=== PATIENT | female | born 1950 | race Caucasian/White ===

== ENCOUNTER → 2017-03-26 | Outpatient (CLI) | payer OTHER | LOC: CLAB 14:07 | PROVIDERS: ATTEND Physical Medicine & Rehabilitation | DX: M54.5 Low back pain (principal); M54.6 Pain in thoracic spine; M54.2 Cervicalgia; M53.3 Sacrococcygeal disorders, not elsewhere classified; W19.XXXA Unspecified fall, initial encounter; M50.223 Other cervical disc displacement at C6-C7 level; M51.36 Other intervertebral disc degeneration, lumbar region | CPT/HCPCS: 72040-PO; 72070-PO; 72100-PO; 72220-PO ==

== ENCOUNTER 2017-06-12 06:54 | Observation (INO) | payer OTHER ==
--- NOTE | 2017-06-12 06:57 | EDPHY ---
H & P Time Seen by Provider: 06/12/17 06:56 HPI/ROS: CHIEF COMPLAINT: Rapid heart rate HISTORY OF PRESENT ILLNESS: Patient is a history of atrial fibrillation but has never had to be cardioverted. She had adverse reaction diltiazem in the past and when she goes atrial fibrillation takes metoprolol at 12.5 mg dose which usually resolves her symptoms. Last night around 6:00 p.m. she went into atrial fibrillation and still feels like she is in it. Not currently anticoagulated. Not associated with chest pain or shortness of breath or lightheadedness or syncope. Her 2nd reason for presentation tonight is at 2:00 a.m. she got out of bed and tripped over a pillow and fell hitting left side of her chest and upper abdomen on the marble table top at home. She presents with pain in her left lower chest and upper abdomen worse with movement and respiration. Symptoms moderate with movement or palpation. REVIEW OF SYSTEMS: Eye: no change in vision ENT: no sore throat Cardiac: HPI Pulmonary: no cough or SOB Abdomen: no vomiting, diarrhea, abdominal pain Musculoskeletal: no back pain or neck pain Skin: no rash Neuro: no headache Constitutional: no fever : no urinary symptoms A comprehensive 10 point review of systems is otherwise negative aside from elements mentioned in the history of present illness. PAST MEDICAL HISTORY: Previous history and physical dated 12/21/2013 personally reviewed by myself at 6:55 a.m. includes fibromyalgia, anxiety, atrial fibrillation, irritable bowel. TMJ, and . Social history: Nonsmoker, family history of AFib, occasional alcohol. General Appearance: Alert and conversant, cooperative. Eyes: No scleral icterus. ENT, Mouth: Normal mucous membranes. Respiratory: Normal respiratory effort, breath sounds equal, lungs are clear to auscultation. Cardiovascular: Irregularly irregular and tachycardic. Gastrointestinal: Patient has tenderness over the spleen on the left side and over the 10th 11th and 12th ribs laterally. Neurological: Alert and oriented x3. Normally conversant. Face symmetric, normal movement and sensation in all extremities. Skin: Warm and dry, no rashes. Musculoskeletal: No peripheral edema and no joint swelling. Psychiatric: Not agitated. Emergency Department course/MDM: EKG, IV metoprolol at 5 mg increments. Check electrolytes. Plan for chest x- ray and CT abdomen pelvis discussed and consented to evaluate for splenic injury. 945: Discussed with Blanco, get echo, admit hospitalist, NPO. Results including slightly elevated troponin discussed with the patient. 1000: Additional IV metoprolol 5 mg for heart rate in the 120s, echo ordered, admission discussed and consented. Normal saline 1 L IV for IV contrast. I think she has a chest wall contusion, negative trauma workup for intra- abdominal or intrathoracic injury. Smoking Status: Never smoked Constitutional: Initial Vital Signs Temperature (C) 36.5 C 06/12/17 06:57 Heart Rate 127 H 06/12/17 06:57 Respiratory Rate 18 06/12/17 06:57 Blood Pressure 113/75 06/12/17 06:57 O2 Sat (%) 96 06/12/17 06:57 O2 Delivery Mode Room Air Allergies/Adverse Reactions: diltiazem Allergy (Severe, Verified 06/12/17 07:00) Other-Enter Comments diltiazem HCl [From Cardizem] Allergy (Severe, Verified 06/12/17 07:00) Other-Enter Comments aloe vera Allergy (Mild, Verified 06/12/17 07:00) Rash Penicillins Allergy (Mild, Verified 06/12/17 07:00) Rash Sulfa (Sulfonamide Antibiotics) Allergy (Mild, Verified 06/12/17 07:00) Rash Home Medications: Medication Instructions Recorded ALPRAZolam [Xanax 1 MG (*)] 1 mg PO HS 06/12/17 Metoprolol Tartrate [Lopressor 25 12.5 mg PO 06/12/17 mg (*)] Oxycodone HCl MO 06/12/17 Medical Decision Making - Diagnostics EKG Interpretation: 12-lead EKG interpreted by me; official reading is in trace master. My interpretation is atrial fibrillation rate 139 no acute ischemic changes, nonspecific T-wave flattening. Imaging Results: Imaging Impressions Chest X-Ray 06/12/17 07:26 Impression: Chest negative for acute posttraumatic sequela. Abdomen CT 06/12/17 07:57 Impression: 1. Minimal subcutaneous edema along the left flank. 2. No fracture or bowel or solid organ injury. 3. Benign angiomyolipoma in left lobe of liver is unchanged in size since June 2015. Findings discussed with Emergency Department physician, Paulo Curran on June at 9:[address] abdomen and pelvis for trauma, normal spleen per Helgans at 9:18 a.m. Differential Diagnosis: Differential diagnosis considered for narrow complex tachycardia including but not limited to various causes of sinus tachycardia, SVT, atrial flutter and atrial fibrillation. Differential for left upper quadrant trauma considered including but not limited to hemothorax, pneumothorax, splenic injury, rib fracture or contusion. Consult/Admit Bed Type: [place] [id number] Critical Care Time: Critical care time spent by me, Dr. Curran, exclusively with the care of this patient was 35 minutes, exclusive of PA or MANAGER STONE time and exclusive of separate procedures. The organ system at risk was cardiovascular and I ordered echocardiogram, multiple diagnostic studies, cardiology consultation, IV metoprolol, and admission to stabilize the patient and prevent worsening of the patient's condition. - Data Points Laboratory Results: Laboratory Results 06/12/17 07:37 06/12/17 07:37 06/12/17 06/12/17 06/12/17 07:41 07:37 07:37 WBC RBC Hgb POC Hgb 15.3 gm/dL gm/dL (12.6-16.3) Hct POC Hct 45 % % (38-47) MCV MCH MCHC RDW Plt Count MPV Neut % (Auto) Lymph % (Auto) [place] % (Auto) Eos % (Auto) Baso % (Auto) Nucleat RBC Rel Count Absolute Neuts (auto) Absolute Lymphs (auto) Absolute Monos (auto) Absolute Eos (auto) Absolute Basos (auto) Absolute Nucleated RBC Immature Gran % Immature Gran # POC Sodium 140 mEq/L mEq/L (134-144) Sodium 138 mEq/L mEq/L (134-144) POC Potassium 4.3 mEq/L mEq/L (3.3-5.0) Potassium 4.6 mEq/L mEq/L (3.5-5.2) POC Chloride 104 mEq/L mEq/L (97-110) Chloride 106 mEq/L mEq/L (97-110) Carbon Dioxide 21 mEq/l L mEq/l (22-31) Anion Gap 11 mEq/L mEq/L (8-16) POC BUN 21 mg/dL mg/dL (7-23) BUN 20 mg/dL mg/dL (7-23) Creatinine 0.8 mg/dL mg/dL (0.6-1.0) POC Creatinine 0.8 mg/dL mg/dL (0.6-1.0) Estimated GFR > 60 Glucose 105 mg/dL H mg/dL (70-100) POC Glucose 109 mg/dL H mg/dL (70-100) Calcium 9.6 mg/dL mg/dL (8.5-10.4) Troponin I 0.090 ng/mL H ng/mL (0-0.034) 06/12/17 07:37 WBC 10.45 10^3/uL H 10^3/uL (3.80-9.50) RBC 4.59 10^6/uL 10^6/uL (4.18-5.33) Hgb 14.1 g/dL g/dL (12.6-16.3) POC Hgb Hct 41.7 % % (38.0-47.0) POC Hct MCV 90.8 fL fL (81.5-99.8) MCH 30.7 pg pg (27.9-34.1) MCHC 33.8 g/dL g/dL (32.4-36.7) RDW 12.5 % % (11.5-15.2) Plt Count 319 10^3/uL 10^3/uL (150-400) MPV 8.8 fL fL (8.7-11.7) Neut % (Auto) 66.8 % % (39.3-74.2) Lymph % (Auto) 26.2 % % (15.0-45.0) [place] % (Auto) 5.3 % % (4.5-13.0) Eos % (Auto) 0.7 % % (0.6-7.6) Baso % (Auto) 0.5 % % (0.3-1.7) Nucleat RBC Rel Count 0.0 % % (0.0-0.2) Absolute Neuts (auto) 6.99 10^3/uL H 10^3/uL (1.70-6.50) Absolute Lymphs (auto) 2.74 10^3/uL 10^3/uL (1.00-3.00) Absolute Monos (auto) 0.55 10^3/uL 10^3/uL (0.30-0.80) Absolute Eos (auto) 0.07 10^3/uL 10^3/uL (0.03-0.40) Absolute Basos (auto) 0.05 10^3/uL 10^3/uL (0.02-0.10) Absolute Nucleated RBC 0.00 10^3/uL 10^3/uL (0-0.01) Immature Gran % 0.5 % % (0.0-1.1) Immature Gran # 0.05 10^3/uL 10^3/uL (0.00-0.10) POC Sodium Sodium POC Potassium Potassium POC Chloride Chloride Carbon Dioxide Anion Gap POC BUN BUN Creatinine POC Creatinine Estimated GFR Glucose POC Glucose Calcium Troponin I Medications Given: Discontinued Medications Metoprolol Tartrate (Lopressor Injection) 5 mg IVP Q5M CORBY Stop: 06/12/17 07:41 Last Admin: 06/12/17 08:07 Dose: 5 mg Morphine Sulfate (Morphine) 2 mg IVP EDNOW ONE Stop: 06/12/17 07:27 Last Admin: 06/12/17 07:38 Dose: 2 mg Morphine Sulfate (Morphine) 4 mg IVP EDNOW ONE Stop: 06/12/17 07:59 Last Admin: 06/12/17 08:09 Dose: 4 mg Morphine Sulfate (Morphine) 4 mg IVP EDNOW ONE Stop: 06/12/17 09:05 Last Admin: 06/12/17 09:09 Dose: 4 mg Point of Care Test Results: 06/12/17 07:41 POC Sodium 140 POC Potassium 4.3 POC Chloride 104 POC BUN 21 POC Creatinine 0.8 POC Glucose 109 H Departure - Departure Disposition: [facility] Inpatient Acute Clinical Impression: Afib Qualifiers: Atrial fibrillation type: paroxysmal Qualified Code(s): I48.0 - Paroxysmal atrial fibrillation Contusion of left chest wall Qualifiers: Encounter type: initial encounter Qualified Code(s): S20.212A - Contusion of left front wall of thorax, initial encounter Condition: Good Instructions: A-fib (Atrial Fibrillation) (ED), Blunt Chest Trauma (ED) Referrals: Elena Weaver MD [Primary Care Provider] - As per Instructions
[2017-06-12] MEDS: METOPROLOL TARTRATE 5 MG/5 ML INJ IVP SCH ×6 (07:43→11:12)
--- NOTE | 2017-06-12 07:44 | CPEKG ---
Heart Rate: 139 RR Interval: 432 QRSD Interval: 72 QT Interval: 304 QTC Interval: 463 QRS [place]: 47 T Wave [place]: 20 EKG Severity - ABNORMAL ECG - EKG Impression: ATRIAL FIBRILLATION EKG Impression: BORDERLINE T WAVE ABNORMALITIES Electronically Signed By: Paulo Curran 12-Jun-2017 07:44:38
[2017-06-12 07:47] LABS: % IMMATURE GRANULYOCYTES 0.5 % (0.0-1.1); ABSOLUTE IMMATURE GRANULOCYTES 0.05 10^3/uL (0.00-0.10); ADD DIFF? NO; ADD MORPH? NO; ADD SCAN? NO; ATYPICAL LYMPHOCYTE FLAG 0 (0-99); FRAGMENT RBC FLAG 0 (0-99); HEMATOCRIT 41.7 % (38.0-47.0); HEMOGLOBIN 14.1 g/dL (12.6-16.3); LEFT SHIFT FLG 0 (0-99); LIPEMIA HEMOLYSIS FLAG 90 (0-99); MEAN CELL HEMOGLOBIN 30.7 pg (27.9-34.1); MEAN CELL HEMOGLOBIN CONCENTR. 33.8 g/dL (32.4-36.7); MEAN CELL VOLUME 90.8 fL (81.5-99.8); MEAN PLATELET VOLUME 8.8 fL (8.7-11.7); PLATELET CLUMPS FLAG 0 (0-99); PLATELET COUNT 319 10^3/uL (150-400); RED BLOOD CELL COUNT 4.59 10^6/uL (4.18-5.33); RED CELL DISTRIBUTION WIDTH 12.5 % (11.5-15.2)
[2017-06-12 08:05] LABS: ANION GAP 11 mEq/L (8-16); CALCIUM 9.6 mg/dL (8.5-10.4); CARBON DIOXIDE 21 mEq/l (22-31); CHLORIDE 106 mEq/L (97-110); CREATININE 0.8 mg/dL (0.6-1.0); GLOMERULAR FILTRATION RATE > 60; GLUCOSE 105 mg/dL (70-100); POTASSIUM 4.6 mEq/L (3.5-5.2); SODIUM 138 mEq/L (134-144)
[2017-06-12] MEDS ORDERED: IOPAMIDOL (ISOVUE-300) 100 ML BTL ONE (08:29)
[2017-06-12] MEDS ORDERED: HYDROmorphONE/DILAUDID 1 MG/ML SYR IVP ONE (10:00)
[2017-06-12] MEDS ORDERED: NS 1,000 ML IV ONE (10:01)
[2017-06-12] MEDS ORDERED: ONDANSETRON 4 MG/2 ML VIAL ONE (10:38)
[2017-06-12] MEDS ORDERED: ONDANSETRON 4 MG/2 ML VIAL IVP ONE (10:40)
[2017-06-12] MEDS: NS 1,000 ML IV SCH ×2 (14:15→22:20)
[2017-06-12] MEDS ORDERED: METOPROLOL TARTRATE 25 MG TAB PO PRN (14:42)
[2017-06-12] MEDS ORDERED: ASPIRIN 600 MG PR PRN (14:42)
[2017-06-12] MEDS ORDERED: ONDANSETRON 4 MG/2 ML VIAL IVP PRN (15:13)
[2017-06-12] MEDS ORDERED: ACETAMINOPHEN 325 MG TAB PO PRN (15:13)
[2017-06-12] MEDS ORDERED: ONDANSETRON DISINTEGRATING 4 MG TAB PO PRN (15:13)
--- NOTE | 2017-06-12 15:59 | GHP ---
[f rep st] HISTORY AND PHYSICAL DATE OF ADMISSION: 06/12/2017 HISTORY OF PRESENT ILLNESS: The patient is a pleasant 67-year-old female with a history of paroxysm al atrial fibrillation and multiple drug intolerances who presents with atrial fibrillation that sta rted last night. She took 12.5 mg metoprolol p.r.n. about 3 or 4 times. It did not mag. She see [facility] care here. She has not had chest pain, chest pressure. She has an elevated troponin that has no t been part of her symptomatology in the past. She is not on anticoagulation. Her [id number] is 2. She denies history of exertional tolerance. The patient had a mechanical fall last night, landing on her right side. This is causing her pain. REVIEW OF SYSTEMS: Complete 10-point review of systems conducted. Negative except as noted in the HPI. PAST MEDICAL HISTORY: 1. Paroxysmal atrial fibrillation. 2. Hysterectomy. 3. Fibromyalgia. 4. Possible Sjogren syndrome. 5. History of . ALLERGIES: Diltiazem, aloe vera, penicillin, and sulfa. HOME MEDICATIONS: Oxycodone suppository, ascorbic acid, metoprolol, p.r.n. rectal aspirin, Xanax. SOCIAL HISTORY: No tobacco. Lives with her . FAMILY HISTORY: Reviewed and unremarkable. PHYSICAL EXAMINATION: VITAL SIGNS: Temp 36.3, blood pressure 106/72, pulse 88, it was 148 on arriv al, beating 12 times a minute, 98% on 2 L. GENERAL: No acute distress. Conversant. Sclerae anict mickey. Oropharynx clear. Mucous membranes moist. NECK: Supple. No lymphadenopathy or JVD. LUNGS : Clear to auscultation bilaterally. HEART: S1, S2. Irregularly irregular. No murmur. ABDOMEN: Soft, nontender, nondistended. LOWER EXTREMITIES: Without edema. Calves are nontender. SKIN: Without rash. NEUROLOGIC: Exam is nonfocal. LABORATORY DATA: White count 10.5, hematocrit 41, platelets 319,000. Sodium 140, potassium 4.3, ch loride 104, bicarb 21, BUN 11, creatinine 0.8. Troponin 0.09. Abdominal CT shows soft tissue swell ing in the left flank, but no internal injury. EKG interpreted by me shows atrial fibrillation at r apid at 139 with normal axis and intervals. The flat T's inferiorly but no ST or T-wave changes. C hest x-ray shows no acute cardiopulmonary disease. I discussed the case with Dr. Codey Simeon. ASSESSMENT/PLAN: A 67-year-old female, with paroxysmal atrial fibrillation here with same. 1. Atrial fibrillation. The patient is potentially scheduled for HILARY cardioversion in the morning. She has aversion to many medications so may not tolerate anticoagulation. She is possibly willing to do low-molecular weight heparin. This should be verified before she is cardioverted. 2. Elevated troponin concerning for demand ischemia. Angiogram is possibly scheduled in the [facility]. Again I am not clear the patient would tolerate dual antiplatelet therapy so this could potentia lly be a very high-risk situation. She is not in heart failure right now. 3. Pain. I will continue her pain medicines from home. 4. Anxiety. Continue her p.r.n. Xanax. DISPOSITION: Observation status. /[id number]/MODL
--- NOTE | 2017-06-12 18:20 | GCON ---
[f rep st] CONSULTATION CARDIOLOGY CONSULTATION. DATE OF CONSULTATION: 06/12/2017 REFERRING PHYSICIAN: Nataliya Baltazar MD INDICATION FOR CONSULTATION: Mild troponin elevation, episode of paroxysmal atrial fibrillation. HISTORY OF PRESENT ILLNESS: The patient is a pleasant 67-year-old female with a past medical history of paroxysmal atrial fibrillation initially diagnosed approximately 4 years ago and is well cared for by Dr. Garner and Dr. Nuñez at [facility]. She uses p.r.n. metoprolol for her episodes of atrial fibrillation. She states she typically gets episodes of atrial fibrillation that occur approximately twice a year. She does have a CHADS-VASc score of 3 based on age, gender, and history of hypertension, although she disputes the fact that she has a history of hypertension. She is not on anticoagulation therapy. I have discussed in detail with her the risks versus benefits of anticoagulation. She refuses anticoagulation, states she would be intolerant to medications. She has never been on anticoagulation. She is unable to take aspirin secondary to GI upset, as well. The patient was in her usual state of health until last evening when she had a very large dinner and got up from the table and went into atrial fibrillation with rapid ventricular response. She treated herself with p.r.n. metoprolol, and atrial fibrillation persisted throughout the evening. She got up in the middle of the night to go the bathroom and tripped over a pillow and fell onto a hard marble table on her left flank causing intense left flank pain, prompting her evaluation at [facility] for further evaluation. She did undergo a chest x-ray in the emergency department, and it demonstrated negative chest for acute trauma or posttraumatic sequelae. Lungs are clear. Mediastinal contours are normal. There is no evidence of a pneumothorax. She did have a troponin drawn, which was mildly elevated at 0.090. She denies complaints of chest pain, chest pressure, palpitations, dizziness, lightheadedness, near syncope, or syncope. She denies complaints of PND, orthopnea, or lower extremity edema. She does have left-sided flank pain at the site of her traumatic injury from earlier this morning. The patient has no known history of coronary artery disease. She states that when she was initially diagnosed with atrial fibrillation she underwent extensive evaluation and denies any history of coronary artery disease. She has not undergone any risk stratification in the last 4 years. Currently, at the time of my exam, she is resting comfortably. She is vomiting intermittently, which she feels is related to the fact that she received Dilaudid. PAST MEDICAL HISTORY: Notable for an angiomyolipoma, anxiety, atrial fibrillation, fibromyalgia, functional dyspepsia, GERD, heartburn, hemorrhoids, hyperlipidemia, hypertension, irritable bowel syndrome, lumbar radiculopathy, multiple chemical sensitivity syndrome, osteopenia, borderline diabetes, tinnitus, urinary urgency. 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 MEDICATIONS ON ADMISSION: Include oxycodone suppositories b.i.d., herbal supplements, vitamin C, metoprolol 12.5 mg p.o. p.r.n. atrial fibrillation, rectal suppository of aspirin 600 mg b.i.d. p.r.n. and she uses this p.r.n. when she has atrial fibrillation, Xanax 1.5 to 2 mg p.o. h.s. and 1 mg p.o. b.i.d. ALLERGIES: To medications include diltiazem, which resulted in a long 10- second pause, aloe, penicillins, and sulfa. SOCIAL HISTORY: She lives with her . She is a nonsmoker. REVIEW OF SYSTEMS: Positive for left flank pain, nausea, vomiting, abdominal pain, and chronic lower back pain. The remainder of review of systems was negative. PHYSICAL EXAMINATION: VITAL SIGNS: Blood pressure is 106/72, heart rate of 88 , respiratory rate of 12, oxygen saturation 98% on 2 L nasal cannula, temperature 36.3. GENERAL: She is awake, alert, oriented, appropriate, in no apparent distress, but does vomit intermittently. LUNGS: Clear to auscultation anteriorly. She is unable to lean up secondary to her chronic back pain. CARDIAC: S1, S2. Irregularly, irregular. No murmurs, rubs, or gallops. There is no evidence of JVP or carotid bruits. ABDOMEN: Soft, nontender, nondistended. There is no evidence of cyanosis, clubbing, or edema. LABORATORY DATA: White blood cell count 10.45, hemoglobin 14.1, hematocrit 41.7 , platelets 319. Sodium of 138, potassium 4.6, chloride 106, bicarb 21, BUN 20 , creatinine 0.8, glucose 105. Troponin 0.090. DIAGNOSTIC DATA: CT of the abdomen demonstrates minimal subcutaneous edema along the left flank. No fracture or bowel or solid organ injury. There is benign angiomyolipoma in the left lobe of the liver unchanged since previous study in 2015. Chest x-ray: No pneumothorax. EKG: Demonstrates atrial fibrillation with rapid ventricular response at 139 beats per minute. Telemetry at the time of my exam demonstrates atrial fibrillation at 119 beats per minute. IMPRESSION: 1. Atrial fibrillation with rapid ventricular response. 2. Mildly elevated troponin. 3. Nausea and vomiting thought to be secondary to Dilaudid. 4. Left flank plain secondary to a traumatic fall. Chest x-ray and CT of the abdomen are unremarkable for any trauma. The patient is a pleasant 67-year-old female with known history of paroxysmal atrial fibrillation. She has a mildly elevated troponin at this time and generally asymptomatic. She has had no further cardiac risk stratification since her initial diagnosis approximately 4 years ago. I have recommended HILARY- guided cardioversion. She has refused. She refuses anticoagulation. Would recommend that she remain in the hospital to trend her serial troponins. Would recommend she remain n.p.o. after midnight in anticipation for reconsideration of HILARY-guided cardioversion and possibly the need for diagnostic left heart catheterization versus further cardiac risk stratification with nuclear stress test in the morning pending the results of serial cardiac enzymes. PLAN: 1. Serial cardiac troponins have been ordered. 2. N.p.o. after midnight for consideration of possible diagnostic left heart catheterization. 3. Consider HILARY cardioversion in the morning pending on patient's atrial fibrillation status. 4. Will discuss anxiety medicine and pain medicine management with Dr. Ishan Peraza of the hospitalist service and will provide some gentle IV hydration at this time. 5. Pt with multiple medications sensitivities and I do have concern that she would be intolerant to dual anti platelet therapy and to anticoagulation. Will require further detailed discussion with pt regarding risks and benefits of any future cardiac procedures. 45 minutes spent coordinating patient care. /[id number]/MODL MTDD
--- NOTE | 2017-06-12 18:56 | ECHO ---
[id number] + + [address] : : [place] [address] : : [phone] + + Adult Echocardiographic Report + ------+ :Name: FRED BARON PStudy Date: 06/12/2017 11:12 AM : : Hospital Admission Number: [id number] Locatio n: ER6: :: 1950 Gender: Female Height: 69 in : :Age: 67 yrs Race: WH Weight: 160 lb : :Reason For Study: Eval LV Fx : : BSA: 1.9 meters 2 : :History: Chest Pain, New onset A-fib : + ------+ MMode/2D Measurements \T\ Calculations IVSd: 1.1 cm LVIDd: 3.7 cm FS: 26.4 % Ao root diam: 3.5 cm LVPWd: 1.3 cm LVIDs: 2.7 cm EDV(Teich): 57.0 ml ACS: 1.8 cm ESV(Teich): 27.0 ml EF(Teich): 52.6 % Normal Measurement Values: + + :LVIDd (3.5-5.7cm) IVSd (0.6-1.1cm) LVPWd (0.6-1.1cm) Aortic Root (2.0-3.7cm)Left Atrium (1.5-4.0cm): :LV Vol(d) (76-115ml) LV Vol(s) (29-48ml) Ejec Fraction (50-65%)PV Pierre (0.6- 1.2m/s) TV Pierre (0.4-1.0m/s) : :MV E Pierre (0.8-1.0m/s)MV A Pierre (0.3-1.0m/s)LVOT Pierre (0.7-1.2m/s) Asc Ao Pierre ( 0.9-1.8m/s) : + + Doppler Measurements \T\ Calculations MV E max pierre: Ao V2 max: AI max pierre: LV V1 max: 81.9 cm/sec 99.1 cm/sec 267.0 cm/sec 95.3 cm/sec Ao max PG: AI max P.5 mmHg LV V1 max P.9 mmHg AI dec slope: 3.6 mmHg 118.0 cm/sec2 AI P1/2t: 662.7 msec PA V2 max: PI end-d pierre: TR max pierre: 59.7 cm/sec 80.1 cm/sec 252.0 cm/sec PA max P.4 mmHg TR max P.4 mmHg RAP systole: 5.0 mmHg RVSP(TR): 30.4 mmHg Left Ventricle The left ventricle is normal in size. There is mild concentric left ventricular hypertrophy. Ejection Fraction = 60%. Right Ventricle The right ventricle is normal in size and function. Atria The left atrial size is normal. Right atrial size is normal. Mitral Valve The mitral valve is redundant but does not meet criteria for prolapse. There is no evidence of mitral valve prolapse. There is no mitral valve stenosis. There is trace to mild mitral regurgitation. Tricuspid Valve Normal tricuspid valve. Right ventricular systolic pressure is normal. There is moderate tricuspid regurgitation. Aortic Valve The aortic valve is trileaflet. There is no aortic stenosis. Trace aortic regurgitation. Pulmonic Valve The pulmonic valve is not well visualized. trace to mild pulmonic valvular regurgitation. Great Vessels The aortic root is normal size. Pericardium/Pleural There is no pericardial effusion. Conclusion A complete two-dimensional transthoracic echocardiogram was performed (2D, M-mode, Doppler and color flow Doppler). 1. The left ventricle is normal in size. There is mild concentric left ventricular hypertrophy. The Ejection Fraction = 60%. 2. The mitral valve is redundant but does not meet criteria for prolapse. There is trace to mild mitral regurgitation. 3. The aortic valve is trileaflet. There is no aortic stenosis. Trace aortic regurgitation. 4. There is no pericardial effusion. Final Reading Physician: Kennedy Rose MD electronically signed on 06/12/2017 06:54 PM Ordering Physician: LUC MATHEW Performed By: Satish Daniels, [email or web address]
[2017-06-12] MEDS: ALPRAZolam 1 MG TAB PO PRN (19:52)
[2017-06-12] MEDS ORDERED: OXYCODONE RC SCH (21:00)
[2017-06-12] MEDS ORDERED: ALPRAZolam 1 MG TAB PO SCH (21:00)
[2017-06-12] MEDS: METOPROLOL TARTRATE 25 MG TAB PO SCH (21:02)
[2017-06-12] MEDS: OXYCODONE RC SCH (21:02)
[2017-06-13] MEDS: ALPRAZolam 1 MG TAB PO PRN (01:45)
[2017-06-13 03:59] LABS: ANION GAP 7 mEq/L (8-16); CARBON DIOXIDE 22 mEq/l (22-31); CHLORIDE 105 mEq/L (97-110); CREATININE 0.7 mg/dL (0.6-1.0); GLOMERULAR FILTRATION RATE > 60; GLUCOSE 101 mg/dL (70-100); SODIUM 134 mEq/L (134-144)
[2017-06-13 04:11] LABS: TROPONIN I 0.103 ng/mL (0-0.034)
[2017-06-13 07:30] VITALS: PULSE 72; TEMP 98
[2017-06-13] MEDS ORDERED: ASCORBIC ACID 500 MG TAB PO SCH (09:00)
[2017-06-13] MEDS ORDERED: Herbals/Supplements -Info Only PO SCH (09:00)
[2017-06-13] MEDS: METOPROLOL TARTRATE 25 MG TAB PO SCH (09:17)
[2017-06-13] MEDS: OXYCODONE RC SCH (09:17)
[2017-06-13] MEDS ORDERED: LIDOCAINE 5% 1 EA PATCH TD SCH (09:30)
[2017-06-13] MEDS: NS 1,000 ML IV SCH (09:40)
--- NOTE | 2017-06-13 10:17 | GDS ---
[f rep st] DISCHARGE SUMMARY DIAGNOSES: 1. Paroxysmal atrial fibrillation, spontaneously converted. 2. Fibromyalgia with chronic pain syndrome. 3. Rib contusion. 4. Minimally elevated troponin. CONSULTATIONS: Cardiology, Dr. Codey Simeon and [facility]. PROCEDURES DONE: 1. Echocardiogram: Normal left ventricular size and function. Mild LVH. 2. Abdominal CT scan: Minimal subcutaneous edema along the left flank. No fracture, or bowel or s olid organ injury. 3. Chest x-ray: Negative for acute findings. HOSPITAL COURSE: The patient is a 67-year-old woman with a history of paroxysmal atrial fibrillatio n. She takes metoprolol on an as-needed basis. She also has fibromyalgia with chronic pain. She w as admitted with AFib, with a rapid ventricular response that did not improve. She also sustained a fall and a left rib contusion. In the hospital, she had the above procedures. Her main complaint at the time I am seeing her, is her rib pain. She was monitored overnight, cardiology saw and evalu ated her. She refused to take any anticoagulation or aspirin, so a HILARY cardioversion was not recomm ended, because she would need to be on anticoagulation a month after the procedure. They also consi dered an angiogram given her elevated troponin, however, she refused dual platelet therapy, and give n the fact she had no further ischemic type chest pain, no ischemic findings on her EKG, and her tro ponins were minimally elevated, and were normal on the day of discharge. They offered her a chemica l stress test in the hospital, but she refused, and at this time, her only options are to go home wi medical management, and follow up with [facility] as an outpatient. Her overall risk is low. CONDITION ON DISCHARGE: Good. DISCHARGE MEDICATIONS: Please see discharge medication form. She will resume her usual medications and I added a Lidoderm patch to use on her rib contusion. FOLLOWUP INSTRUCTION: She should follow up with her primary care provider as needed. Follow up y[facility] as scheduled. Should she have any recurrent symptoms of AFib, she can always return to the emergency room in the interim. /[id number]/MODL
--- NOTE | 2017-06-13 12:51 | PDCARPN ---
Cardiology Progress Note Chief Complaint: PAF/elevated trop Assessment/Plan: Assessment: 67-y/o F with PMH PAF, multiple drug sensitivities, gastritis, FM, here after likely mechanical fall with injury to L rib cage. Found to be in AF RVR with Trop 0.09. #. PAF: has converted to SR [id number] of at least 2/ patient has declined AC due to drug sensitivities #. fall: likely mechanical but pt has some concerns that she is unclear why she would have fallen we discussed wearing monitor outpatient #. elevated trop: ? demand ischemia for RVR pt declines stress test as inpt but will consider it for next week Plan: OK to d/c home with outpatient followup 06/13/17 12:48 Subjective: Still noting rib pain. AF has converted Time Spent With Patient: 25 minutes Objective: Vital Signs (8 Hrs) Temp Pulse Resp BP Pulse Ox 06/13/17 07:29 98.0 F 72 16 121/68 H 96 Intake/Output (24 Hrs) 06/12/17 06/13/17 06/14/17 05:59 05:59 05:59 Intake Total 3620 Balance 3620 Intake: Oral (ml) 1450 IV Infused (ml) 2170 Ns 1,000 ml @ 100 mls/hr 1170 IV CONT CORBY Rx#: [id number] Other: Weight 77.7 kg Number of Voids Toilet 1 Result Diagrams: 06/12/17 07:37 06/13/17 03:04 Cardiac Labs: Cardiac Lab Results (72 Hrs) 06/13/17 06/13/17 06/12/17 11:00 03:04 19:00 Troponin I 0.100 H 0.103 H 0.110 H Telemetry: reviewed Echocardiogram: EF 65, trace MR/TR - Physical Exam Constitutional: healthy appearing, no apparent distress Eyes: PERRL Ears, Nose, Mouth, Throat: moist mucous membranes ICD10 Worksheet Patient Problems: Problems Problem Status Onset Afib Acute Contusion of left chest wall Acute Abnormal transaminases Acute Fibromyalgia Acute
[2017-06-13 12:58] VITALS: BP 123/72; RESP 14; O2SAT 91
[2017-06-13] MEDS ORDERED: PATCH REMOVAL 1 EA PATCH TD SCH (21:00)
== END 2017-06-13 13:59 | disposition home or self-care (01) ==
LOC: INTOOBSV 10:05 → F2W 11:25
PROVIDERS: ADMIT Internal Medicine; ATTEND Internal Medicine
DX: I48.0 Paroxysmal atrial fibrillation (principal); S20.212A Contusion of left front wall of thorax, initial encounter; R79.89 Other specified abnormal findings of blood chemistry; M79.7 Fibromyalgia; G89.4 Chronic pain syndrome; W01.190A Fall on same level from slipping, tripping and stumbling with subsequent striking against furniture, initial encounter; Y92.013 Bedroom of single-family (private) house as the place of occurrence of the external cause; Y99.8 Other external cause status; R11.2 Nausea with vomiting, unspecified; R10.9 Unspecified abdominal pain; F41.9 Anxiety disorder, unspecified; K58.9 Irritable bowel syndrome, unspecified; K21.9 Gastro-esophageal reflux disease without esophagitis; E78.5 Hyperlipidemia, unspecified; I10 Essential (primary) hypertension; Z88.0 Allergy status to penicillin; Z88.2 Allergy status to sulfonamides
CPT/HCPCS: 71020; 74177; 93005; 93306; 96374; 96375; 96376; 99291; G0378; J1170; J2405; Q9967; 82947-QW

== ENCOUNTER → 2017-08-21 | Outpatient (CLI) | payer OTHER | LOC: CIMAGING 07:55 | PROVIDERS: ATTEND Family Medicine | DX: K76.89 Other specified diseases of liver (principal); K82.4 Cholesterolosis of gallbladder; D17.71 Benign lipomatous neoplasm of kidney; M79.7 Fibromyalgia | CPT/HCPCS: 76705-PO ==

== ENCOUNTER → 2018-01-19 | Outpatient (CLI) | payer OTHER | LOC: CIMAGING 07:17 | PROVIDERS: ATTEND Family Medicine | DX: K76.89 Other specified diseases of liver (principal); D17.71 Benign lipomatous neoplasm of kidney; K82.4 Cholesterolosis of gallbladder | CPT/HCPCS: 76705-PO ==

== ENCOUNTER → 2018-07-14 | Outpatient (CLI) | payer OTHER | LOC: CIMAGING 07:19 | PROVIDERS: ATTEND Family Medicine | DX: D30.01 Benign neoplasm of right kidney (principal); D18.03 Hemangioma of intra-abdominal structures; K82.4 Cholesterolosis of gallbladder | CPT/HCPCS: 36415-PO; 76705-PO; 84481-90; 86141-90; 86255-90 ==